=== PATIENT | female | born 1960 | race Caucasian/White ===

== ENCOUNTER 2018-04-27 14:54 | Emergency (ER) | payer MEDICAID ==
[~2018-04-27] VITALS: Ht 167.6 cm; Wt 84.5 kg
[2018-04-27 15:10] VITALS: BP 142/91
[2018-04-27] MEDS ORDERED: LIDOcaine 5% patch TP STA (15:47)
[2018-04-27] MEDS ORDERED: ketorolac tromethamine 15mg/ml inj. IM ONE (15:50)
[2018-04-27] MEDS ORDERED: ACET-2615 PO (16:06)
[2018-04-27] MEDS ORDERED: LIDO700A32 TOP (16:06)
[2018-04-27] MEDS ORDERED: IBUP-1984 PO (16:13)
== END 2018-04-27 16:18 | disposition home or self-care (01) ==
LOC: ER 14:55
DX: M54.5 Low back pain (principal); Z88.8 Allergy status to other drugs, medicaments and biological substances; Z79.899 Other long term (current) drug therapy; Z98.890 Other specified postprocedural states
CPT/HCPCS: 96372; 99283; J1885

== ENCOUNTER 2020-03-20 00:05 | Emergency (ER) | payer MEDICAID ==
[~2020-03-20] VITALS: Ht 167.6 cm; Wt 102.7 kg
[~2020-03-20 00:05] MED LIST: LIDO700A32 TOP
[2020-03-20 00:15] VITALS: BP 133/81
[2020-03-20 00:51] LABS: BASOPHILS % (AUTO) 0.2 % (0-1); EOSINOPHILS # (AUTO) 0.1 X10'3 (0-0.9); EOSINOPHILS % (AUTO) 1.1 % (0-6); HEMATOCRIT 38.8 % (35.0-45.0); HEMOGLOBIN 13.2 g/dl (12.0-16.0); LYMPHOCYTES # (AUTO) 2.2 X10'3 (1.1-4.8); LYMPHOCYTES % (AUTO) 29.6 % (21-51); MEAN CORPUSCULAR HGB CONC 34.1 g/dL (33.0-36.5); MEAN CORPUSCULAR VOLUME 93.9 FL (78-98); MEAN PLATELET VOLUME 8.5 FL (7.4-10.4); MONOCYTES # (AUTO) 0.5 X10'3 (0-0.9); MONOCYTES % (AUTO) 6.7 % (2-12); NEUTROPHILS # (AUTO) 4.6 X10'3 (1.8-7.7); NEUTROPHILS % (AUTO) 62.4 % (42-75); PLATELET COUNT 152 X10'3 (140-440); RED BLOOD COUNT 4.13 X10'6 (4.20-5.60); RED CELL DISTRIBUTION WIDTH 13.2 % (11.5-14.5); WHITE BLOOD COUNT 7.3 X10'3 (4.5-11.0)
[2020-03-20 00:55] LABS: CLARITY,URINE CLEAR (Clear); COLOR,URINE YELLOW (Yellow); GLUCOSE, URINE NEGATIVE (Neg); KETONES,URINE NEGATIVE (Neg); LEUKOCYTE ESTERASE ,URINE NEGATIVE (Neg); NITRITES, URINE NEGATIVE (Neg); OCCULT BLOOD,URINE TRACE-INTACT (Neg); PH,URINE 6.5 (4.8-8.0); PROTEIN,URINE NEGATIVE (Neg); UROBILINOGEN,URINE 0.2 E.U/dL (0.2-1.0)
[2020-03-20 01:00] LABS: UA COLLECTION TYPE CLN CATCH MIDSTREAM; URINE HCG NEGATIVE (NEG)
[2020-03-20 01:01] LABS: BACTERIA,URINE NONE SEEN /HPF (Neg); RBC,URINE 0-2 /HPF (0-2); SQUAMOUS EPITHELIAL CELL,UR NONE SEEN /LPF (FEW); WBC,URINE NONE SEEN /HPF (0-4)
[2020-03-20 01:06] LABS: ALANINE AMINOTRANSFERASE 42 U/L (12-78); ALBUMIN 4.4 G/DL (3.4-5.0); ALBUMIN/GLOBULIN RATIO 1.2 (1.1-1.5); ALKALINE PHOSPHATASE 110 IU/L (46-116); ANION GAP 11 (8-16); ASPARTATE AMINO TRANSFERASE 38 U/L (10-37); BLOOD UREA NITROGEN 10 MG/DL (7-18); BUN/CREATININE RATIO 8.3 (6.6-38.0); CALCIUM 9.1 MG/DL (8.5-10.1); CHLORIDE 106 MMOL/L (99-107); CREATININE 1.21 MG/DL (0.40-0.90); GLUCOSE 95 MG/DL (70-104); LIPASE 150 U/L (73-393); POTASSIUM 4.2 MMOL/L (3.5-5.1); SODIUM 141 MMOL/L (135-145); TOTAL CARBON DIOXIDE 24.5 MMOL/L (24-32); TOTAL PROTEIN 8.1 G/DL (6.4-8.2); eGFR 45 ML/MIN
[2020-03-20 02:11] LABS: ETHANOL < 0.010 GM/DL (0.0-0.010)
[2020-03-20] MEDS: magnesium citrate 296ml oral solution PO ONE (03:21)
== END 2020-03-20 03:24 | disposition home or self-care (01) ==
LOC: ER 00:06
DX: K59.00 Constipation, unspecified (principal); R10.84 Generalized abdominal pain; R11.0 Nausea; Z98.890 Other specified postprocedural states; Z88.8 Allergy status to other drugs, medicaments and biological substances; Z79.899 Other long term (current) drug therapy
CPT/HCPCS: 36415; 74018; 80053; 80320; 81001; 81025; 83690; 85025; 99284

== ENCOUNTER 2023-05-26 07:40 | Emergency (ER) | payer MEDICAID ==
[~2023-05-26] VITALS: Ht 167.6 cm; Wt 96.2 kg
[2023-05-26] MEDS: acetaminophen 325mg tablet PO STA (09:05)
[2023-05-26 09:08] VITALS: BP 127/78; PULSE 64; RESP 16; O2SAT 99
[2023-05-26 09:09] VITALS: TEMP 98
== END 2023-05-26 09:13 | disposition home or self-care (01) ==
LOC: ER 07:40
DX: M79.672 Pain in left foot (principal); M06.9 Rheumatoid arthritis, unspecified; Z88.8 Allergy status to other drugs, medicaments and biological substances; Z79.899 Other long term (current) drug therapy
CPT/HCPCS: 73610; 99284

== ENCOUNTER 2023-10-26 08:38 | Outpatient (CLI) | payer MEDICAID | END 2023-10-26 23:59 | disposition home or self-care (01) | LOC: MRI 08:38 | PROVIDERS: ATTEND Pediatrics Sports Medicine | DX: M77.01 Medial epicondylitis, right elbow (principal); M25.521 Pain in right elbow | CPT/HCPCS: 73221 ==

== ENCOUNTER 2024-01-19 14:53 | Emergency (ER) | payer MEDICAID ==
[~2024-01-19] VITALS: Ht 167.6 cm; Wt 109.2 kg
[2024-01-19 15:42] LABS: BILIRUBIN,URINE NEGATIVE (Neg); CLARITY,URINE CLEAR (Clear); COLOR,URINE STRAW (Yellow); GLUCOSE, URINE NEGATIVE (Neg); KETONES,URINE NEGATIVE (Neg); LEUKOCYTE ESTERASE ,URINE NEGATIVE (Neg); NITRITES, URINE NEGATIVE (Neg); OCCULT BLOOD,URINE NEGATIVE (Neg); PROTEIN,URINE NEGATIVE (Neg); UROBILINOGEN,URINE 0.2 E.U/dL (0.2-1.0)
[2024-01-19 15:47] LABS: UA COLLECTION TYPE CLN CATCH MIDSTREAM
[2024-01-19 15:55] LABS: BASOPHILS % (AUTO) 0.4 % (0-1); EOSINOPHILS # (AUTO) 0.1 X10'3 (0-0.9); EOSINOPHILS % (AUTO) 1.6 % (0-6); HEMATOCRIT 39.5 % (35.0-45.0); HEMOGLOBIN 13.2 g/dl (12.0-16.0); LYMPHOCYTES # (AUTO) 2.5 X10'3 (1.1-4.8); LYMPHOCYTES % (AUTO) 41.9 % (21-51); MEAN CORPUSCULAR HEMOGLOBIN 30.3 PG (27.0-31.0); MEAN CORPUSCULAR HGB CONC 33.5 g/dL (33.0-36.5); MEAN CORPUSCULAR VOLUME 90.6 FL (78-98); MEAN PLATELET VOLUME 9.1 FL (7.4-10.4); MONOCYTES # (AUTO) 0.5 X10'3 (0-0.9); MONOCYTES % (AUTO) 8.5 % (2-12); NEUTROPHILS # (AUTO) 2.8 X10'3 (1.8-7.7); NEUTROPHILS % (AUTO) 47.6 % (42-75); PLATELET COUNT 206 X10'3 (140-440); RED BLOOD COUNT 4.36 X10'6 (4.20-5.60); RED CELL DISTRIBUTION WIDTH 13.6 % (11.5-14.5); WHITE BLOOD COUNT 5.9 X10'3 (4.5-11.0)
[2024-01-19 16:11] LABS: ALANINE AMINOTRANSFERASE 28 U/L (12-78); ALKALINE PHOSPHATASE 78 IU/L (46-116); ANION GAP 9 (8-16); ASPARTATE AMINO TRANSFERASE 26 U/L (10-37); BILIRUBIN,TOTAL 0.9 MG/DL (0.1-1.0); BLOOD UREA NITROGEN 10 MG/DL (7-18); BUN/CREATININE RATIO 9.9 (10.0-20.0); CALCIUM 8.8 MG/DL (8.5-10.1); CHLORIDE 104 MMOL/L (99-107); CREATININE 1.01 MG/DL (0.40-0.90); GLUCOSE 114 MG/DL (70-104); LIPASE 53 U/L (16-77); POTASSIUM 3.5 MMOL/L (3.5-5.1); SODIUM 138 MMOL/L (135-145); TOTAL PROTEIN 8.1 G/DL (6.4-8.2); eCRCL 53 ML/MIN; eGFR 55 ML/MIN
[2024-01-19] MEDS: ondansetron 4mg rapidly disintigrating tab PO ONE (17:01)
[2024-01-19] MEDS: ketorolac trometh 30MG/ML vial 30 MG/ML VIAL IM ONE (17:01)
[2024-01-19] MEDS: dicyclomine 10 MG capsule PO ONE (17:01)
[2024-01-19] MEDS ORDERED: AMOX-580 PO (17:04)
[2024-01-19] MEDS ORDERED: HYDR-3972 PO (17:04)
[2024-01-19] MEDS ORDERED: ONDA-243 PO (17:04)
[2024-01-19 17:31] VITALS: BP 126/95; PULSE 72; RESP 19; TEMP 96.7; O2SAT 98
== END 2024-01-19 17:32 | disposition home or self-care (01) ==
LOC: ER 14:54
DX: K57.32 Diverticulitis of large intestine without perforation or abscess without bleeding (principal); K59.00 Constipation, unspecified; M06.9 Rheumatoid arthritis, unspecified; Z88.8 Allergy status to other drugs, medicaments and biological substances; Z79.899 Other long term (current) drug therapy
CPT/HCPCS: 36415; 74176; 80053; 81003; 83690; 85025; 96372; 99285; J1885